=== PATIENT | female | born 1995 | race Caucasian/White ===

== ENCOUNTER 2019-09-03 23:02 | Emergency (ER) | payer SELFPAY ==
[~2019-09-03] VITALS: Ht 170.2 cm; Wt 54.4 kg
[2019-09-03] MEDS ORDERED: LIDOCAINE 2%/ EPINEPHRINE 20ML MDV INJ STA (23:21)
[2019-09-03] MEDS ORDERED: KETOROLAC TROMETHAMINE 30 MG/ML VIAL IV STA (23:40)
[2019-09-03] MEDS ORDERED: KETOROLAC TROMETHAMINE 30 MG/ML VIAL ONE (23:45)
[2019-09-03] MEDS ORDERED: IOPAMIDOL 370 MG/ML 200 ML INFUS..BTL INJ ONE (23:52)
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
--- NOTE | 2019-09-04 01:45 | NUR ---
PT IN CT, FAMILY AT BEDSIDE.
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
--- NOTE | 2019-09-04 02:30 | NUR ---
PT INFORMED OF TRANSFER AND NOW CRYING AND HOLLERING IN ROOM, FAMILY AT BEDSIDE
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
--- NOTE | 2019-09-04 03:03 | NUR ---
[facility] NOTIFIED OF TRANSFER ETA 20 MINUTES
[2019-09-04 04:21] VITALS: BP 146/78
== END 2019-09-04 04:10 | disposition short-term general hospital (02) ==
LOC: FSED 23:02 → EDBD 23:02 → FSED 09-04 04:10
DX: S01.81XA Laceration without foreign body of other part of head, initial encounter (principal); S32.010A Wedge compression fracture of first lumbar vertebra, initial encounter for closed fracture; S32.030A Wedge compression fracture of third lumbar vertebra, initial encounter for closed fracture; S32.040A Wedge compression fracture of fourth lumbar vertebra, initial encounter for closed fracture; M54.2 Cervicalgia; R10.9 Unspecified abdominal pain; V43.53XA Car driver injured in collision with pick-up truck in traffic accident, initial encounter; Y92.488 Other paved roadways as the place of occurrence of the external cause
CPT/HCPCS: 12013; 70450; 72125; 72131; 74177; 80048; 80076; 80307; 81003; 81025; 85025; 96374; 99284; J1885; J2001; Q9967